=== PATIENT | female | born 1970 | race Caucasian/White ===

== ENCOUNTER 2017-10-01 11:03 | Emergency (ER) | payer SELFPAY ==
[2017-10-01 11:14] VITALS: BP 148/76
[2017-10-01] MEDS ORDERED: TORADOL IM ONE (12:46)
[2017-10-01] MEDS ORDERED: ANCEF IM ONE (12:46)
[2017-10-01] MEDS ORDERED: BOOSTRIX IM ONE (12:46)
--- NOTE | 2017-10-01 12:46 | Emergency Department Report ---
Upper Extremity - HPI Chief Complaint: Wound/Laceration Stated Complaint: RIGHT HAND INJURY Time Seen by Provider: 10/01/17 12:08 Upper Extremity: Left Hand (patient with injury to hand. 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 Throbbing. 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 Patient says she has a laceration to her right hand and middle finger. She said her pain is 8 out of 10 movements but better with resting. She says she did not seek medical attention. Her tetanus shot is not up-to-date. Denies any fever or chills. She said the pain is radiating up her forearm when she moves her right hand. Denies any injury to wrist, forearm, elbow or right arm.he said the pain is shooting and and throbbing. No [id number] medication taken.and has no medical problems per patient. ED Review of Systems ROS: Stated complaint: RIGHT HAND INJURY Other details as noted in HPI Comment: All other systems reviewed and negative Constitutional: no symptoms reported Respiratory: no symptoms reported Cardiovascular: denies: chest pain, palpitations, dyspnea on exertion, edema, syncope Gastrointestinal: denies: abdominal pain, nausea, vomiting, diarrhea, constipation Musculoskeletal: joint swelling, arthralgia. denies: back pain, myalgia Skin: other ( Laceration right hand and fingers) Neurological: denies: headache, weakness, numbness, paresthesias, confusion, abnormal gait, vertigo ED Past Medical Hx - Past Medical History Previous Medical History?: No - Surgical History Past Surgical History?: No - Family History Family history: hypertension - Social History Smoking Status: Never Smoker Substance Use Type: None - Medications Home Medications: Home Medications Medication Instructions Recorded Confirmed Last Taken Type Acetaminophen/Codeine [Tylenol 1 tab PO Q6H PRN 3 Days #12 tab 10/01/17 Unknown Rx /Codeine # 3 tab] Cephalexin [Keflex] 500 mg PO Q6HR 10 Days #40 capsule 10/01/17 Unknown Rx Ibuprofen [Motrin] 600 mg PO Q8H PRN 5 Days #15 tablet 10/01/17 Unknown Rx Upper Extremity Exam - Exam General: Vital signs noted. No distress. Alert and acting appropriately. This is a 46-year-old female well-nourished well-developed in no acute distress Head and Torso: No HEENT Abnormality (normal exam), No Neck Tenderness (normal exam), No Chest/Lungs Abnormality (normal exam), No Abdominal Tenderness ( normal exam), No Back Tenderness (normal exam) Shoulder Exam: Yes Normal Range of Motion in Shoulder, No Shoulder Tenderness, No Clavicle Tenderness, No Shoulder Deformity, No AC Joint Tenderness Arm Exam: No Arm/Humerus Tenderness, No Arm Deformity Elbow: Yes Normal Range of Motion in Elbow, No Elbow Tenderness, No Elbow Deformity Forearm: No Forearm Tenderness, No Forearm Deformity, No Pain with Pronation, No Pain with Supination Wrist: Yes Normal ROM in Wrist, Yes Snuffbox Tenderness, Yes Pain with Axial Thumb Compression, No Wrist Tenderness, No Wrist Deformity Hand: Yes Hand Tenderness (tended to palpate a dorsal and palmar aspect of right hand. No erythema, small superficial lacerations.), Yes Normal ROM in Digit(s) (patient with full range of motion to right hand and fingers. She says it hurts more when she moves her fingers and right hand. She is able to fully close and open her right hand and spread her fingers apart.), Yes Digit(s ) Deformity (multiple lacerations to fingers and right hand but no deformity seen.), Yes Tendon Dysfunction, No Hand Deformity, No Digit Tenderness CMS Exam: Yes Broken Skin (patient with 2 superficial laceration to her right palm below her her fifth digit. She has multiple laceration to second, third, fourth and fifth digit. Lacerations are superficial and closing, she has multiple laceration to her fifth digit which are superficial and all laceration are to the palmar side of her fingers. Ears are tender to palpate. She'll with good color, sensation, movement and temperature to both hands.), Yes Normal Distal Pulses, Yes Normal Capillary Refill, Yes Normal Distal Sensation ED Course Vital Signs 10/01/17 11:11 Temperature 98.2 F Pulse Rate 56 L Respiratory 16 Rate Blood Pressure 148/76 O2 Sat by Pulse 97 Oximetry - Reevaluation(s) Reevaluation #1: 10/01/17 16:31 Patient given Boostrix 0.5 mL, Ancef 1 g IM and Toradol 60 mg IM. Wound care done and Neosporin ointment placed the site. 10/01/17 16:41 ED Medical Decision Making - Radiology Data Radiology results: report reviewed x-ray of right hand reveal no fracture or dislocation. Radiologist's reports no soft tissue abnormality. 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 She says she did not seek medical attention at that time. Patient says she is having pain and swelling to her right hand and fingers. She complains of pain radiating up her right hand but denies any injury to her wrist, forearm, elbow, shoulder or right arm. All extremities with normal exam except her right hand with 2 superficial laceration and tender to palpate without any side effects infection and fingers of right hand to include sec in, third, fourth and fifth finger with lacerations. Right fifth finger with approximately 3 superficial lacerations. All lacerations are tender to palpate at site without any erythema or drainage. Patient had incident 14 hours [employer] therefore unable to suture laceration sites. Some lacerations are very superficial. All wounds were hemostasis with dry blood. Patient with good pulses to both radial and ulnar at 2+ and bounding. She is able to open and close her hands but she is very painful when she does this. No signs of tendon injury. She has no physical findings for abnormality to her wrist, forearm, elbow, arm and shoulder. Wound irrigated extensively with normal saline and iodine, and emergency room peroxide and sterile water used for patient to soak her right hand for 30 minutes. Wound was then cleaned and Neosporin ointment placed a sites. Sterile dry dressing placed the site and patient instructed to return to emergency room since she does not have a primary care doctor in 2 days for reevaluation or sooner if she develops redness , swelling, drainage, restriction in movement, increased in pain that is not relieved with medication, fever. Patient was given Toradol 60 mg IM, Ancef 1 g IM, Boostrix 0.5 mL IM. Patient had no adverse reaction from medication. Patient discharged home in stable condition with prescription for Tylenol No. 3 , Motrin and Keflex. She voiced understanding of discharge instruction and treatment plan. Critical care attestation.: If time is entered above; I have spent that time in minutes in the direct care of this critically ill patient, excluding procedure time. ED Disposition Clinical Impression: Pain of finger of right hand, Arthralgia of hand, right Laceration of right hand with delay in treatment Qualifiers: Encounter type: initial encounter Qualified Code(s): S61.411A - Laceration without foreign body of right hand, initial encounter Laceration of index finger with delay in treatment Qualifiers: Encounter type: initial encounter Qualified Code(s): S61.218A - Laceration without foreign body of other finger without damage to nail, initial encounter Disposition: TO HOME OR SELFCARE Is pt being admited?: No Does the pt Need Aspirin: No Condition: Stable Instructions: Laceration (ED), Acute Wound Care (ED), Hand Hygiene (ED), Arthralgia (ED) Additional Instructions: Take antibiotic as prescribed Follow-up with your primary care physician and/or return to the emergency room in 2 days for evaluation of right hand injury Keep affected area clean and dry. Followed discharge instruction on acute wound care . Please return to emergency room if you develop increasing redness, streaking, fever, difficulty moving in and the left forearm and increase in pain. Do not drive or operate heavy machinery while taking and Tylenol No. 3 as this medication causes drowsiness Prescriptions: Acetaminophen/Codeine [Tylenol /Codeine # 3 tab] 1 tab PO Q6H PRN 3 Days #12 tab PRN Reason: Pain, Moderate (4-6) Cephalexin [Keflex] 500 mg PO Q6HR 10 Days #40 capsule Ibuprofen [Motrin] 600 mg PO Q8H PRN 5 Days #15 tablet PRN Reason: Pain Referrals: PRIMARY CARE, [Primary Care Provider] - 10/03/17 return to, emergency room [Other] - 10/03/17 ([facility]sreturn to the emergency room at [facility] in 2 days for reevaluation of your right hand injury if you do not have a primary care doctor) Forms: Work/School Release Form(ED)
--- NOTE | 2017-10-01 13:51 | XRay Report ---
RIGHT HAND, 3 views: History: Laceration, injury The bony architecture is intact. Bony alignment is normal. No soft tissue abnormalities are seen. The joint spaces appear preserved. IMPRESSION: Unremarkable right hand.
[2017-10-01] MEDS ORDERED: HYDROGEN PEROXIDE TP ONE (14:12)
[2017-10-01] MEDS ORDERED: TRIPLE ANTIBIOTIC TP ONE ×2 (16:30→16:31)
== END 2017-10-01 16:59 | disposition home or self-care (01) ==
LOC: ED 11:03
DX: S61.210A Laceration without foreign body of right index finger without damage to nail, initial encounter (principal); X58.XXXA Exposure to other specified factors, initial encounter; Y93.89 Activity, other specified; Y92.89 Other specified places as the place of occurrence of the external cause; Y99.8 Other external cause status
CPT/HCPCS: 73130; 90471; 90715; 96372; 99283; J0690; J1885; A6250